=== PATIENT | female | born 1980 | race Caucasian/White ===

== ENCOUNTER 2025-02-12 21:01 | Emergency (ER) | payer BC | END 2025-02-12 21:33 | disposition home or self-care (01) | LOC: BURERS 21:01 | DX: S63.502A Unspecified sprain of left wrist, initial encounter (principal); F17.290 Nicotine dependence, other tobacco product, uncomplicated; V80.010A Animal-rider injured by fall from or being thrown from horse in noncollision accident, initial encounter | CPT/HCPCS: 99283 ==